=== PATIENT | male | born 1955 | race Caucasian/White ===

== ENCOUNTER 2018-01-08 17:02 | Emergency (ER) | payer OTHER ==
[2018-01-08] MEDS ORDERED: IPRATROPIUM BROM 0.5MG/2.5ML ONE (17:42)
[2018-01-08] MEDS ORDERED: ALBUTEROL 2.5 MG/3 ML NEB SOL ONE (17:42)
--- NOTE | 2018-01-08 18:45 | RAD REPORT ---
EXAM DESCRIPTION: Kavitha Hector (2 Views)01/08/2018 6:29 pm CLINICAL HISTORY: Cough COMPARISON: None FINDINGS: The lungs appear clear of acute infiltrate. The heart is normal size Postsurgical changes involve the spine IMPRESSION: No acute abnormalities displayed
--- NOTE | 2018-01-08 18:50 | EDPHYS ---
Physician Documentation [facility] Name: Gary Finnegan Jr Age: 62 yrs Sex: Male : 1955 Arrival Date: 01/08/2018 Time: 17:04 Bed 13 Private MD: ED Physician David Poe HPI: 01/08 17:39 This 62 yrs old Male presents to ER via Wheelchair with complaints of Cough, jmm Sore Throat. 17:39 The patient or guardian reports cough. Onset: The symptoms/episode began/occurred jmm gradually, 3 day(s) ago. Associated signs and symptoms: Pertinent positives: fever, sore throat. This is a 62 year old paraplegic patient that presents to the ED with cough and subjective fever. Patient also complains of sore throat. Patient is currently on day 3 of antibiotics. States he has not had relief. . Historical: - Allergies: 17:09 No Known Allergies; sv - Home Meds: 17:09 gabapentin oral oral [Active]; Oxybutynin Chloride Oral [Active]; Baclofen Oral sv [Active]; Bactrim DS Oral [Active]; Lovastatin Oral [Active]; - PMHx: 17:09 Hyperlipidemia; leg spasms; Paralysed (T9 down); sv - PSHx: 17:09 Carpal Tunnel Repair; right knee; right ankle; back sx; sv - Immunization history:: Adult Immunizations up to date. - Social history:: Smoking status: Patient/guardian denies using tobacco. - Ebola Screening: : No symptoms or risks identified at this time. ROS: 17:39 Abdomen/GI: Negative for abdominal pain, nausea, vomiting, diarrhea, and constipation, jmm Back: Negative for injury and pain, MS/Extremity: Negative for injury and deformity, Skin: Negative for injury, rash, and discoloration, Neuro: Negative for headache, weakness, numbness, tingling, and seizure. 17:39 Constitutional: Positive for fever. 17:39 ENT: Positive for sore throat. 17:39 All other systems are negative. Exam: 17:39 Neck: Trachea midline, no masses palpated, and no cervical lymphadenopathy. Supple, jmm full range of motion without nuchal rigidity, or vertebral point tenderness. No Meningismus. 17:39 Constitutional: The patient appears in no acute distress, alert, awake. 17:39 ENT: Posterior pharynx: erythema. 17:39 Cardiovascular: Rate: normal, Rhythm: regular. 17:39 Respiratory: the patient does not display signs of respiratory distress, Respirations: normal, Breath sounds: are clear throughout. 17:39 Skin: Appearance: Color: normal in color, Temperature: normal temperature, Moisture: normal moisture. 17:39 Neuro: Orientation: is normal, Mentation: is normal, Memory: is normal. Vital Signs: 17:10 BP 134 / 74; Pulse 90; Resp 20; Temp 98.5(O); Pulse Ox 96% on R/A; Weight 81.65 kg; sv Height 5 ft. 10 in. (177.80 cm); Pain 4/10; 19:07 BP 136 / 82; Pulse 94; Resp 20; Pulse Ox 97% on R/A; tl3 17:10 Body Mass Index 25.83 (81.65 kg, 177.80 cm) sv MDM: 17:29 Patient medically screened. [facility] 17:46 Data reviewed: vital signs, nurses notes. [facility] 18:49 Data reviewed: radiologic studies, plain films. [facility] 18:49 ED course: After administration of albuterol, the patient states feeling much better. [facility] Patient is alert and non toxic in appearance, plain films reveal no signs of an acute process. The patient will be prescribed steroids and albuterol for home and is advised to follow up with his PCP or return to the ED if symptoms worsen. patient understood and agrees with the plan of care. . 01/08 17:36 Order name: Chest Pa And Lat (2 Views) XRAY; Complete Time: 18:49 [facility] Administered Medications: 17:45 Drug: DuoNeb (3:1) (2.5 mg - 0.5 mg) 3 ml Route: Nebulizer; tl3 18:19 Follow up: Response: No adverse reaction tl3 Disposition: 01/08/18 18:50 Discharged to Home. Impression: Acute bronchitis, unspecified. - Condition is Stable. - Discharge Instructions: Acute Bronchitis. - Prescriptions for Prednisone 20 mg Oral Tablet - take 3 tablet by ORAL route once daily for 5 days; 15 tablet. Albuterol Sulfate 90 mcg/actuation - inhale 1-2 puff by INHALATION route every 4-6 hours; 1 Inhaler. - Medication Reconciliation Form, Thank You Letter, Antibiotic Education, Prescription Opioid Use form. - Follow up: Private Physician; When: 1 - 2 days; Reason: Re-evaluation by your physician. - Notes: Please follow up with your primary care provider in 1 to 2 days for reevaluation. Please return to the ED if you develop shortness of breath, fever, weakness, or any other concerning symptoms. Addendum: 01/12/2018 12:09 Co-signature as Attending Physician, David Poe MD. g s Signatures: Dispatcher [employer] EDMS Renata Bearden, RN RN Bret Leiva PA PA jmm Starr, Gregory, MD MD Sagrario Ventura RN RN tl3 Corrections: (The following items were deleted from the chart) 01/08 19:09 18:50 01/08/2018 18:50 Discharged to Home. Impression: Acute bronchitis, unspecified. tl3 Condition is Stable. Forms are Medication Reconciliation Form, Thank You Letter, Antibiotic Education, Prescription Opioid Use. Follow up: Private Physician; When: 1 - 2 days; Reason: Re-evaluation by your physician. [facility]
--- NOTE | 2018-01-08 18:50 | ER ---
Nurse's Notes [facility] Name: Gary Finnegan Jr Age: 62 yrs Sex: Male : 1955 Arrival Date: 01/08/2018 Time: 17:04 Bed 13 Private MD: Diagnosis: Acute bronchitis, unspecified Presentation: 01/08 17:07 Presenting complaint: Patient states: fever, chest congestion, productive cough for sv about a week. Pt called PCP and prescribed azithromycin, 1 dose was Tuesday. Transition of care: patient was not received from another setting of care. Onset of symptoms was January 01, 2018. Care prior to arrival: None. 17:07 Method Of Arrival: Wheelchair sv 17:07 Acuity: KYRIE 3 sv 19:08 Risk Assessment: Do you want to hurt yourself or someone else? Patient reports no tl3 desire to harm self or others. Initial Sepsis Screen: Does the patient meet any 2 criteria? No. Patient's initial sepsis screen is negative. Does the patient have a suspected source of infection? No. Patient's initial sepsis screen is negative. Historical: - Allergies: 17:09 No Known Allergies; sv - Home Meds: 17:09 gabapentin oral oral [Active]; Oxybutynin Chloride Oral [Active]; Baclofen Oral sv [Active]; Bactrim DS Oral [Active]; Lovastatin Oral [Active]; - PMHx: 17:09 Hyperlipidemia; leg spasms; Paralysed (T9 down); sv - PSHx: 17:09 Carpal Tunnel Repair; right knee; right ankle; back sx; sv - Immunization history:: Adult Immunizations up to date. - Social history:: Smoking status: Patient/guardian denies using tobacco. - Ebola Screening: : No symptoms or risks identified at this time. Screenin:36 Abuse screen: Denies threats or abuse. Nutritional screening: No deficits noted. tl3 Tuberculosis screening: No symptoms or risk factors identified. Fall Risk None identified. Assessment: 17:36 General: Appears in no apparent distress. comfortable, well groomed, well developed, tl3 well nourished, Behavior is calm, cooperative, appropriate for age. Pain: Complains of pain in chest wit cough. Neuro: Level of Consciousness is awake, alert, obeys commands, Oriented to person, place, time, situation, Appropriate for age. Cardiovascular: Heart tones S1 S2. Respiratory: Reports cough that is Airway is patent Respiratory effort is even, unlabored, Respiratory pattern is regular, symmetrical, Breath sounds are coarse bilaterally. GI: No deficits noted. No signs and/or symptoms were reported involving the gastrointestinal system. : No deficits noted. No signs and/or symptoms were reported regarding the genitourinary system. EENT:. Derm: No deficits noted. No signs and/or symptoms reported regarding the dermatologic system. 18:41 Reassessment: Patient appears in no apparent distress at this time. No changes from tl3 previously documented assessment. Patient and/or family updated on plan of care and expected duration. Pain level reassessed. Patient is alert, oriented x 3, equal unlabored respirations, skin warm/dry/pink. 19:09 EENT: tl3 Vital Signs: 17:10 BP 134 / 74; Pulse 90; Resp 20; Temp 98.5(O); Pulse Ox 96% on R/A; Weight 81.65 kg; sv Height 5 ft. 10 in. (177.80 cm); Pain 4/10; 19:07 BP 136 / 82; Pulse 94; Resp 20; Pulse Ox 97% on R/A; tl3 17:10 Body Mass Index 25.83 (81.65 kg, 177.80 cm) sv ED Course: 17:04 Patient arrived in ED. as 17:08 Triage completed. sv 17:13 Arm band placed on right wrist. sv 17:14 Bret Blackman PA is PHCP. jmm 17:14 David Poe MD is Attending Physician. jmm 17:36 Sagrario Ventura, KHURRAM is Primary Nurse. tl3 17:36 Patient has correct armband on for positive identification. tl3 17:36 No provider procedures requiring assistance completed. tl3 18:29 Chest Pa And Lat (2 Views) XRAY In Process Unspecified. EDMS 19:07 Patient did not have IV access during this emergency room visit. tl3 Administered Medications: 17:45 Drug: DuoNeb (3:1) (2.5 mg - 0.5 mg) 3 ml Route: Nebulizer; tl3 18:19 Follow up: Response: No adverse reaction tl3 Outcome: 18:50 Discharge ordered by . [facility] 19:07 Discharged to home via wheelchair. tl3 19:07 Condition: stable 19:07 Discharge instructions given to patient, Instructed on discharge instructions, follow up and referral plans. medication usage, Demonstrated understanding of instructions, follow-up care, medications, Prescriptions given X 2. 19:09 Patient left the ED. tl3 Signatures: Dispatcher [employer] Renata Alvarado, RN Bret Montero PA PA jmm Martinez, Amelia as Lowrey, Tammy, KHURRAM RN tl3
== END 2018-01-08 19:09 | disposition home or self-care (01) ==
LOC: ER 17:02
DX: J20.9 Acute bronchitis, unspecified (principal); E78.5 Hyperlipidemia, unspecified
CPT/HCPCS: 71046; 94640; 99284